=== PATIENT | male | born 1960 | race Asian ===

== ENCOUNTER 2017-12-17 10:54 | Emergency (ER) | payer OTHER ==
[~2017-12-17] VITALS: Ht 170.2 cm; Wt 65.3 kg
[2017-12-17 11:08] VITALS: BP 142/81
--- NOTE | 2017-12-17 11:32 | NUR ---
PT COMES TO ED C/O ITCHNESS TO ATRMS FACE AND TRUNK, STATES THEY HAVE SMALL BUGS IN THEIR HOUSE THAT ARE CRAWLING ALL OVER THEM. PT BROUGHT IN A BAG WITH A REMOTE CONTROL THAT HAS VERY SMALL BUGS CRAWLING ON IT, DR MENDOZA AT BEDSIDE LOOKING AT BUGS, SATES IT IS SCABIES. PT AND HER BOTH WITH SAME SYMPTOMS. DENIES PAIN. NAD NOTED/STATED OTHERWISE
[2017-12-17 12:12] VITALS: BP 133/80
--- NOTE | 2017-12-17 12:13 | NUR ---
Patient discharged with v/s stable. Written and verbal after care instructions given and explained. Patient alert, oriented and verbalized understanding of instructions. Ambulatory with steady gait. All questions addressed prior to discharge. ID band removed. Patient advised to follow up with PMD. Rx of PERMETHRIN CREAM given. Patient educated on indication of medication including possible reaction and side effects. Opportunity to ask questions provided and answered.
== END 2017-12-17 12:13 | disposition home or self-care (01) ==
LOC: MED 10:54
DX: B86 Scabies (principal); Z88.1 Allergy status to other antibiotic agents; Z88.8 Allergy status to other drugs, medicaments and biological substances
CPT/HCPCS: 99282